=== PATIENT | female | born 2000 ===

== ENCOUNTER 2022-01-01 14:45 | Inpatient (IN) ==
[2022-01-01 15:14] LABS: Mucus,Urine Occasional /LPF (Occasional); RBC,Urine 2 /HPF (0-4); Squamous Epithelial Cell,Urine Few /HPF (0-10)
[2022-01-01 15:16] LABS: Bilirubin,Urine Negative (Negative); Blood, Urine Negative (Negative); Glucose,Urine (UA) Negative (Negative); Ketones,Urine Negative (Negative); Nitrite,Urine Negative (Negative); Protein,Urine Negative (Negative); Urine Appearance Slightly Cloudy (Clear); Urine Color Yellow (Yellow); Urine pH 7.5 (4.5-8.0)
[2022-01-01 15:22] LABS: Basophils % 0.1 % (0.0-0.8); Eosinophils % 0.4 % (0.00-10.9); Hematocrit 38.9 VOL% (35.7-47.0); Immature Granulocytes % 0.4 %; Immature Granulocytes Absolute 0.03 #; Lymphocytes # 1.5 10*3/uL (1.4-4.0); Lymphocytes % 19.1 % (21.3-54.2); Mean Corpuscular HGB Conc 33.4 GM/DL (32-36); Mean Corpuscular Volume 88.6 FL (87-102); Mean Platelet Volume 9.8 FL (9.6-12.0); Monocytes # 0.5 10*3/uL (0.11-0.8); Platelet Count 314 T/CUMM (130-400); Red Blood Count 4.39 MC/CUMM (3.8-5.5); Red Cell Distribution Width 13.5 % (9.3-17.3); White Blood Count 7.9 T/CUMM (4-12)
[2022-01-01 15:39] LABS: Albumin 2.4 G/DL (3.4-5.0); Bilirubin,Direct 0.14 MG/DL (0.0-0.20); Bilirubin,Total 0.5 MG/DL (0.20-1.00); Calcium 8.8 MG/DL (8.5-10.1); Osmolality,Calculated 272.8 MOS/KG (273-304); Potassium 3.7 MMOL/L (3.5-5.1); Total Protein 6.7 G/DL (6.4-8.2); Uric Acid 4.3 MG/DL (2.6-6.0)
[2022-01-01 16:14] LABS: INR 0.9; Partial Thromboplastin Time 29.6 SECS (23.8-32.1)
[2022-01-01 16:37] LABS: Protein/Creatinine Ratio,Urine 0.4 RATIO
[2022-01-01] MEDS ORDERED: TRANEXAMIC ACID 1,000 MG in SODIUM CHLORIDE 0.9% 100 ML IV PRN (17:06)
[2022-01-01] MEDS ORDERED: OXYTOCIN/LR 20 UNIT/1,000 ML BAG IV ONE (17:06)
[2022-01-01] MEDS ORDERED: METHYLERGONOVINE 0.2 MG/1 ML AMP IM PRN (17:06)
[2022-01-01] MEDS ORDERED: miSOPROStoL 200 MCG TABLET RECTAL PRN (17:06)
[2022-01-01] MEDS ORDERED: ONDANSETRON 4 MG/2 ML VIAL IV PRN (17:06)
[2022-01-01] MEDS ORDERED: CARBOPROST TROMETHAMINE 250 MCG/ML AMP IM PRN (17:06)
[2022-01-01] MEDS: LABETALOL 100 MG TABLET PO SCH (20:49)
[2022-01-02] MEDS ORDERED: LACTATED RINGERS 1,000 ML IV SCH ×2 (07:00→12:00)
[2022-01-02] MEDS ORDERED: LACTATED RINGERS 1,000 ML IV ONE ×2 (07:34→10:16)
[2022-01-02] MEDS ORDERED: CITRIC ACID/SODIUM CITRATE 30 ML UDCUP PO ONE (08:00)
[2022-01-02] MEDS ORDERED: OXYTOCIN/LR 30 UNIT/1,000 ML BAG IV ONE (08:00)
[2022-01-02] MEDS ORDERED: OXYTOCIN 10 UNIT/ML VIAL IM ONE (08:00)
[2022-01-02] MEDS ORDERED: ceFAZolin 3,000 MG in SYRINGE 1 EACH IV ONE (08:00)
[2022-01-02] MEDS ORDERED: FAMOTIDINE 20 MG/2 ML VIAL IV ONE (08:00)
[2022-01-02] MEDS: LABETALOL 100 MG TABLET PO SCH (08:17)
[2022-01-02] MEDS ORDERED: BUPIVACAINE SPINAL 0.75% 2 ML AMP SPINAL ONE (08:49)
[2022-01-02] MEDS ORDERED: ONDANSETRON 4 MG/2 ML VIAL ONE (08:49)
[2022-01-02] MEDS ORDERED: buprenorphine HCL 0.3 MG/ML VIAL ONE (08:50)
[2022-01-02] MEDS ORDERED: ACETAMINOPHEN INJ 1,000 MG/100 ML VIAL IV ONE (08:53)
[2022-01-02] MEDS ORDERED: DEXAMETHASONE 4 MG/1 ML VIAL ONE (08:53)
[2022-01-02] MEDS ORDERED: KETOROLAC 30 MG/1 ML VIAL ONE (08:53)
[2022-01-02] MEDS ORDERED: PHENYLEPHRINE 1 MG/10 ML SYRINGE IV ONE ×2 (10:10→10:13)
[2022-01-02] MEDS ORDERED: FUROSEMIDE 20 MG/2 ML VIAL ONE (10:10)
[2022-01-02 10:19] LABS: Cord Arterial Blood HCO3 19.6 MMOL/L
[2022-01-02 10:21] LABS: Bacteria,Urine Occasional /HPF (Few); Mucus,Urine Occasional /LPF (Occasional); RBC,Urine 1 /HPF (0-4); Squamous Epithelial Cell,Urine Occasional /HPF (0-10)
[2022-01-02 10:22] LABS: Cord Venous Blood HCO3 21.3 MMOL/L; Cord Venous Blood PCO2 47.2 MMHG; Cord Venous Blood PO2 33.8
[2022-01-02 10:23] LABS: Bilirubin,Urine Negative (Negative); Blood, Urine Negative (Negative); Glucose,Urine (UA) Negative (Negative); Ketones,Urine Negative (Negative); Nitrite,Urine Negative (Negative); Protein,Urine Negative (Negative); Urine Appearance Clear (Clear); Urine Color Yellow (Yellow); Urine Specific Gravity 1.015 (1.001-1.035); Urine Urobilinogen 0.2 eU/dL (<2.0); Urine pH 7.5 (4.5-8.0)
[2022-01-02] MEDS ORDERED: ACETAMINOPHEN 325 MG TABLET PO PRN (11:37)
[2022-01-02] MEDS ORDERED: ONDANSETRON 4 MG/2 ML VIAL IV PRN (11:37)
[2022-01-02] MEDS ORDERED: OXYTOCIN/LR 20 UNIT/1,000 ML BAG IV ONE (11:37)
[2022-01-02] MEDS ORDERED: RHO(D) IMMUNE GLOBULIN 300 MCG SYRINGE IM ONE (11:37)
[2022-01-02] MEDS ORDERED: KETOROLAC 30 MG/1 ML VIAL IV SCH (16:00)
[2022-01-02] MEDS ORDERED: ACETAMINOPHEN 500 MG TABLET PO SCH (16:00)
[2022-01-02] MEDS: ACETAMINOPHEN 500 MG TABLET PO SCH ×2 (16:42→22:58)
[2022-01-02] MEDS: KETOROLAC 30 MG/1 ML VIAL IV SCH ×2 (16:42→22:59)
[2022-01-02] MEDS: FUROSEMIDE 40 MG/4 ML VIAL IV SCH ×2 (16:51→23:04)
[2022-01-02] MEDS ORDERED: FUROSEMIDE 40 MG/4 ML VIAL IV SCH (17:00)
[2022-01-02 19:34] LABS: Basophils % 0.1 % (0.0-0.8); Hematocrit 38.2 VOL% (35.7-47.0); Hemoglobin 12.8 GM/DL (12.0-16.0); Immature Granulocytes % 0.3 %; Immature Granulocytes Absolute 0.04 #; Lymphocytes # 1.3 10*3/uL (1.4-4.0); Lymphocytes % 9.4 % (21.3-54.2); Mean Corpuscular HGB Conc 33.5 GM/DL (32-36); Mean Corpuscular Volume 86.4 FL (87-102); Mean Platelet Volume 9.8 FL (9.6-12.0); Monocytes # 0.7 10*3/uL (0.11-0.8); Monocytes % 4.8 % (1.7-12.7); Neutrophils % 85.4 % (38.7-73.9); Platelet Count 309 T/CUMM (130-400); Red Blood Count 4.42 MC/CUMM (3.8-5.5); Red Cell Distribution Width 13.2 % (9.3-17.3); White Blood Count 14.1 T/CUMM (4-12)
[2022-01-02] MEDS: DOCUSATE SODIUM 100 MG CAPSULE PO SCH (21:03)
[2022-01-03] MEDS: KETOROLAC 30 MG/1 ML VIAL IV SCH (05:52)
[2022-01-03 06:02] LABS: Basophils % 0.1 % (0.0-0.8); Eosinophils % 0.2 % (0.00-10.9); Hematocrit 35.1 VOL% (35.7-47.0); Hemoglobin 12.1 GM/DL (12.0-16.0); Immature Granulocytes % 0.4 %; Immature Granulocytes Absolute 0.04 #; Lymphocytes # 1.9 10*3/uL (1.4-4.0); Mean Corpuscular HGB Conc 34.5 GM/DL (32-36); Mean Corpuscular Volume 87.5 FL (87-102); Mean Platelet Volume 9.9 FL (9.6-12.0); Monocytes # 0.7 10*3/uL (0.11-0.8); Monocytes % 6.9 % (1.7-12.7); Neutrophils % 72.4 % (38.7-73.9); Platelet Count 278 T/CUMM (130-400); Red Blood Count 4.01 MC/CUMM (3.8-5.5); Red Cell Distribution Width 13.4 % (9.3-17.3); White Blood Count 9.6 T/CUMM (4-12)
[2022-01-03] MEDS: ACETAMINOPHEN 500 MG TABLET PO SCH (06:02)
[2022-01-03] MEDS: SIMETHICONE CHEW 80 MG TABLET PO PRN ×2 (08:29→21:08)
[2022-01-03] MEDS: MULTIVITAMIN (PRENATAL) TABLET PO SCH (08:29)
[2022-01-03] MEDS: MAGNESIUM HYDROXIDE SUSP 30 ML UDCUP PO PRN ×2 (08:29→21:08)
[2022-01-03] MEDS: DOCUSATE SODIUM 100 MG CAPSULE PO SCH ×2 (08:29→21:08)
[2022-01-03] MEDS: METOCLOPRAMIDE 10 MG TABLET PO SCH ×2 (08:30→16:36)
[2022-01-03] MEDS: IBUPROFEN 800 MG TABLET PO PRN ×2 (10:39→21:08)
[2022-01-03] MEDS ORDERED: IBUPROFEN 800 MG TABLET PO PRN (21:35)
[2022-01-03] MEDS ORDERED: oxyCODONE/ACETAMINOPHEN 5-325 MG TABLET PO PRN ×2 (21:35)
[2022-01-04] MEDS: METOCLOPRAMIDE 10 MG TABLET PO SCH ×2 (01:03→08:49)
[2022-01-04 08:22] VITALS: BP 127/72
[2022-01-04] MEDS: DOCUSATE SODIUM 100 MG CAPSULE PO SCH (08:49)
[2022-01-04] MEDS: MULTIVITAMIN (PRENATAL) TABLET PO SCH (08:49)
[2022-01-04] MEDS: MAGNESIUM HYDROXIDE SUSP 30 ML UDCUP PO PRN (08:49)
== END 2022-01-04 13:30 | disposition home or self-care (01) | DRG 788 ==
LOC: N.LDOUT 14:45 → N.LD 14:46 → N.OB 01-02 15:30
PROVIDERS: ADMIT Obstetrics & Gynecology; ATTEND Obstetrics & Gynecology
PROC: LDCSECT (ICD-10-PCS; 2022-01-02 09:00)